=== PATIENT | male | born 1945 | race Caucasian/White ===

== ENCOUNTER 2018-03-24 13:56 | Emergency (ER) | payer MEDICARE, OTHER ==
[~2018-03-24 13:56] MED LIST: ASP300S PR; ASP325 PO; ASPI-1471 PO; BEN20 PO; BENA20TA3 PO; BENA20TA8 PO; CALC-515 PO; CRAN500C10 PO; CRAN500C11 PO; FAM20 PO; FAMO20TA28 PO; GLUC-198 PO; GLUC100026 PO; HYDR-385 PO; HYDR-389 PO; IBU600 PO; IBUP800T37 PO; IMITREX; LEV500 PO; LEVO-85 PO; LOR5/325 PO; MULT1CAP59 PO; PHEN200T32 PO; PROL80 PO; PROP80CA3 PO; PROP80CA40 PO; RAN150 PO; RANI-366 PO; SAW/1TAB2 PO; SAW450CA3 PO; SAW80CAP4 PO; SUMA50TA34 PO; TAMS0.4C25 PO; VIT1CAPS33 PO; ZINC100T8 PO
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
--- NOTE | 2018-03-24 15:23 | RADIOLOGY IMAGING REPORT ---
FACILITY: [facility] PATIENT NAME: Jarad Lopez : 1945 MR: [id number] V: [id number] EXAM DATE: ORDERING PHYSICIAN: MADELYN WONG TECHNOLOGIST: Location: [facility] Patient: Jarad Lopez : 1945 Visit/Account:[id number] Date of Sevice: 03/24/[address] scan without contrast COMPARISONS: None ADDITIONAL PERTINENT HISTORY: Head injury with headache TECHNIQUE: Multiple axial images were obtained from the skull base to the vertex without IV contrast . One of the following dose optimization techniques was utilized in the performance of this exam: Aut omated exposure control; adjustment of the mA and/or kV according to the patient's size; or use of an iterative reconstruction technique. Specific details can be referenced in the facility's radiology CT exam operational policy. FINDINGS: Midline shift: Negative Ventricles: Mild enlargement of the lateral and third ventricles. Otherwise negative Brain parenchyma: Negative Extra-axial spaces: Negative Intracranial vasculature: Cavernous internal carotid artery calcifications. Otherwise negative Osseous structures: Negative Paranasal sinuses and mastoid air cells: Postoperative changes with previous medial antrostomies. Se roney mucosal thickening involving the right maxillary sinus. Mild mucosal thickening involving the le ft maxillary sinus. Surrounding soft tissues and orbits: Negative IMPRESSION: 1. Mild age-related changes as described above. 2. No evidence of acute intracranial pathology. 3. Paranasal sinus disease involving the maxillary sinuses. Report Dictated By: Derrell Hong MD at 03/24/2018 3:14 PM Report E-Signed By: Derrell Hong MD at 03/24/2018 3:17 PM [id number]
--- NOTE | 2018-03-24 15:26 | RADIOLOGY IMAGING REPORT ---
[place] [facility] [place] NAME: Jarad Lopez : 1945 MR: [id number] V: [id number] EXAM DATE: ORDERING PHYSICIAN: MADELYN WONG TECHNOLOGIST: Location: [facility] [place] Patient: Jarad Lopez : 1945 Visit/Account:[id number] Date of Sevice: 03/24/2018 EXAMINATION: Right forearm radiographs 2 views HISTORY: Right arm stuck between cow and squeeze chute. Compression injury. COMPARISON: None. FINDINGS: AP and lateral views of the right forearm are obtained. Bones: No acute fracture. Joint spaces: Negative. Hardware: None. Alignment: Normal. Soft tissues: Prominent soft tissue swelling along the dorsal forearm. IMPRESSION: No acute right forearm fracture. Prominent soft tissue swelling along the dorsal right forearm. Report Dictated By: Carlos Barragan MD at 03/24/2018 3:18 PM Report E-Signed By: Carlos Barragan MD at 03/24/2018 3:21 PM [id number]
[2018-03-24 16:00] VITALS: BP 133/67
== END 2018-03-24 16:31 | disposition home or self-care (01) ==
LOC: ER 14:00
DX: S57.81XA Crushing injury of right forearm, initial encounter (principal); W23.0XXA Caught, crushed, jammed, or pinched between moving objects, initial encounter
CPT/HCPCS: 70450; 99284

== ENCOUNTER 2018-07-14 01:02 | Day surgery (SDC) | payer MEDICARE, OTHER ==
[~2018-07-14] VITALS: Ht 180.3 cm; Wt 105.2 kg
[2018-07-14] VITALS (8 sets, daily range): BP systolic 95–142; BP diastolic 58–88
[~2018-07-14 01:02] MED LIST changes: +BENA20TA64 PO; -BENA20TA8 PO; +FLUT16SP19 NS; +PNEU0.5D3 IM
[2018-07-14] MEDS ORDERED: PROPOFOL EMUL(*) 10MG/ML 20 ML 40 ML ONE (07:02)
[2018-07-14] MEDS ORDERED: LIDOCAINE/SOD BICARB 8.4% SYR ID ONE (07:10)
[2018-07-14] MEDS ORDERED: NORMOSOL R SOLN(*) 1000 ML BAG 1,000 ML IV PRN (07:10)
[2018-07-14] MEDS ORDERED: PROPOFOL EMUL(*) 10MG/ML 20 ML 20 ML ONE ×2 (07:40→09:20)
--- NOTE | 2018-07-14 09:32 | Short(Outpt) Discharge Summary ---
Discharge Summary Reason for Hosp/Final Diag: (1) Colon cancer screening Status: Chronic Departure Discharge to: Home, Self Care Discharge Instructions Home Meds Active Scripts Fluticasone Prop 50 Mcg Ns (FLONASE 50 MCG NS) 16 Gm [place].susp, 1-2 SPRAYS NS QDAY, #1 BOT 3 Refills Prov:FENG SWAIN MD 06/08/18 Propranolol Hcl (INDERAL LA) 80 Mg Cap.sa.24h, 1 CAP PO BID, #180 CAP 4 Refills Prov:FENG SWAIN MD 06/08/18 Benazepril Hcl (BENAZEPRIL HCL) 20 Mg Tab, 1 TAB PO QDAY, #90 TAB 4 Refills Prov:FENG SWAIN MD 03/30/18 Sumatriptan Succinate (IMITREX) 50 Mg Tablet, 50 MG PO PRN, #18 TAB 3 Refills Prov:FENG SWAIN MD 03/30/18 Reported Medications Vit C/Vit E/Lutein/Min/[place]-3 (OCUVITE SOFTGEL) 1 Each Capsule, 1 CAP PO QDAY, CAPSULE 03/13/18 Cranberry Extract (CRANBERRY) 500 Mg Capsule, 1 CAP PO QDAY, CAPSULE 03/13/18 Saw/Vit E/Sod Magda/Lyc/Beta/Pyg (Prostate Health Caplet) 1 Each Tablet, 1 CAP PO QDAY 03/13/18 Ranitidine Hcl (ZANTAC) 150 Mg Tablet, 1 TAB PO DAILY, TAB 06/03/17 Glucosa Quevedo 2KCL/Chondroitin Quevedo (GLUCOSAMINE & CHONDROITIN CAP) 1 Each Capsule, 1 CAP PO DAILY, CAPSULE Chondroitin - 200mg, Glucosamine - 250mg 06/03/17 Aspirin (ASPIR 81) 81 Mg Tablet., 1 TAB PO QDAY, TAB 06/03/17 Diet: Regular Activity: As Tolerated Special Instructions: Your colonoscopy was completed without any problems and your prep was excellent (Good Job!!). I removed a single polyp from your colon and it was sent to pathology. My office will call you in the next week or so and let you know what the polyp is and when your next colonoscopy should be (either 5 or 10 years) depending on pathology results. SANTIAGO JOSE MD Jul 14, 2018 09:32
== END 2018-07-14 12:00 | disposition home or self-care (01) ==
LOC: OR 01:02
PROVIDERS: ATTEND Surgery
DX: Z12.11 Encounter for screening for malignant neoplasm of colon (principal); D12.3 Benign neoplasm of transverse colon
CPT/HCPCS: 00811; 45385; 88305; J2704